=== PATIENT | male | born 1960 | race African-American/Black ===

== ENCOUNTER → 2022-05-15 | Day surgery (SDC) | payer MEDICAID ==
[~2022-05-15] VITALS: Ht 180.3 cm; Wt 87.1 kg
[~2022-05-15] MED LIST: AMLO10TA80 PO; ASPI-1497 PO; ATOR-2 PO; BUPIVACAINE HCL/PF 0.5% (5MG/ML) 10ML ONE; CEFAZOLIN SODIUM 1000MG/VIAL ONE; FENTANYL CITRATE/PF 50MCG/ML 2ML VIAL IV PRN; FENTANYL CITRATE/PF 50MCG/ML 2ML VIAL ONE; GLYCOPYRROLATE 0.2 MG/ML 2ML VIAL ONE; HYDR100T26 PO; HYDROMORPHONE HCL/PF 2MG/ML CPJ IV PRN; LABE200T9 PO; LISI10TA26 PO; MEPERIDINE HCL/PF 25MG/ML CPJ IV PRN; METF-873 PO; MIDAZOLAM HCL 2 MG/2 ML VIAL ONE; ONDANSETRON HCL 4MG/2ML INJ IV PRN; ONDANSETRON HCL 4MG/2ML INJ ONE; PHENYLEPHRINE HCL 10 MG/ML 1ML (IV VIAL) IV ONE; PROPOFOL 200MG/20ML VIAL IV ONE; ROCURONIUM BROMIDE 10MG/ML VIAL 5ML IV ONE; SKIN ADHESIVE 0.7 GM EA TOP ONE; SODIUM CHLORIDE 0.9% 1,000 ML IV SCH
[2022-05-15 12:31] VITALS: BP 165/90
== END | disposition home or self-care (01) ==
LOC: OR 06:15
PROVIDERS: ATTEND Surgery
DX: K80.10 Calculus of gallbladder with chronic cholecystitis without obstruction (principal); I10 Essential (primary) hypertension; E11.8 Type 2 diabetes mellitus with unspecified complications; E78.5 Hyperlipidemia, unspecified; I25.2 Old myocardial infarction; Z86.73 Personal history of transient ischemic attack (TIA), and cerebral infarction without residual deficits; Z79.82 Long term (current) use of aspirin; Z79.84 Long term (current) use of oral hypoglycemic drugs; Z79.899 Other long term (current) drug therapy; Z98.890 Other specified postprocedural states; Z20.822 Contact with and (suspected) exposure to COVID-19
CPT/HCPCS: 47562; 82962; 87426; 88304; C9803; J0690; J1170; J2250; J2370; J2405; J2704; J3010; J3490

== ENCOUNTER 2024-06-09 13:08 | Emergency (ER) | payer OTHER, MEDICAID ==
[~2024-06-09] VITALS: Ht 180.3 cm; Wt 93.0 kg
[~2024-06-09 13:08] MED LIST changes: -BUPIVACAINE HCL/PF 0.5% (5MG/ML) 10ML ONE; -CEFAZOLIN SODIUM 1000MG/VIAL ONE; -FENTANYL CITRATE/PF 50MCG/ML 2ML VIAL IV PRN; -FENTANYL CITRATE/PF 50MCG/ML 2ML VIAL ONE; -GLYCOPYRROLATE 0.2 MG/ML 2ML VIAL ONE; +HYDR100T11 PO; -HYDR100T26 PO; -HYDROMORPHONE HCL/PF 2MG/ML CPJ IV PRN; -MEPERIDINE HCL/PF 25MG/ML CPJ IV PRN; -MIDAZOLAM HCL 2 MG/2 ML VIAL ONE; -ONDANSETRON HCL 4MG/2ML INJ IV PRN; -ONDANSETRON HCL 4MG/2ML INJ ONE; -PHENYLEPHRINE HCL 10 MG/ML 1ML (IV VIAL) IV ONE; -PROPOFOL 200MG/20ML VIAL IV ONE; -ROCURONIUM BROMIDE 10MG/ML VIAL 5ML IV ONE; -SKIN ADHESIVE 0.7 GM EA TOP ONE; -SODIUM CHLORIDE 0.9% 1,000 ML IV SCH
[2024-06-09 13:15] VITALS: O2SAT 98
[2024-06-09 13:22] VITALS: BP 147/93; PULSE 63; RESP 18; TEMP 97.6; O2SAT 88
[2024-06-09 14:46] LABS: HEMATOCRIT. 42.2 % (42.0-52.0); HEMOGLOBIN. 14.1 g/dL (14.0-18.0); LYMPHOCYTES % 27.8 % (20.0-50.0); MEAN CORPUSCULAR HEMOGLOBIN 30.4 pg (28.0-32.0); MEAN CORPUSCULAR HGB CONC 33.4 g/dL (31.0-37.0); MEAN PLATELET VOLUME 7.7 fl (7.4-10.4); NEUTROPHILS % 61.2 % (40.0-76.0); PLATELET 191 x1000/uL (130-400); RED BLOOD CELL COUNT 4.64 mill/uL (4.7-6.1); RED CELL DISTRIBUTION WIDTH 12.2 % (11.6-14.6); WHITE BLOOD COUNT 5.2 x1000/uL (4.5-11.0)
[2024-06-09 14:58] LABS: CARBON DIOXIDE 31 mEq/L (21-32); CHLORIDE 103 mEq/L (98-107); POTASSIUM 4.1 mEq/L (3.5-5.1); SODIUM 138 mEq/L (136-145)
[2024-06-09 14:59] LABS: CALCIUM 9.7 mg/dL (8.7-10.4)
[2024-06-09 15:04] LABS: CREATININE 1.3 mg/dL (0.6-1.3); GLUCOSE 90 mg/dL (70-105); UREA NITROGEN BLOOD 21 mg/dL (9-23)
[2024-06-09 15:06] LABS: TROPONIN I HIGH SENSITIVITY 33 ng/L (3.0-53)
[2024-06-09 16:44] LABS: TROPONIN I HIGH SENSITIVITY 35 ng/L (3.0-53)
== END 2024-06-09 16:26 | disposition left against medical advice (07) ==
LOC: ER 13:31 → EDBEDREQ 15:06 → ER 16:26
DX: R07.89 Other chest pain (principal); Z79.82 Long term (current) use of aspirin; Z79.899 Other long term (current) drug therapy; Z86.73 Personal history of transient ischemic attack (TIA), and cerebral infarction without residual deficits
CPT/HCPCS: 36415; 71045; 80048; 83880; 84484; 85025; 93005; 99285